=== PATIENT | male | born 1930 | race Caucasian/White ===

== ENCOUNTER 2016-11-08 18:44 | Observation (INO) | payer MEDICARE, OTHER ==
--- NOTE | 2016-11-08 19:17 | ED ---
General Adult HPI - General Chief complaint: Chest Pain Stated complaint: CHEST PAIN Time Seen by Provider: 11/08/16 18:49 Source: patient, RN notes reviewed, old records reviewed Mode of arrival: wheelchair Limitations: no limitations - History of Present Illness Initial comments: 86-year-old male presents with anterior chest pain. He's had 2 episodes pain today. These were short intermittent episodes lasting just seconds. Patient describes the pain as sharp. Patient did report some symptoms in his left neck. There is no associated arm pain. No nausea. No diaphoresis. Patient's had no abdominal pain, no vomiting or diarrhea. No fever or chills. No cough. Patient does take Coumadin for atrial fibrillation, he was told yesterday that his INR was elevated and he should stop taking his Coumadin for several days. Patient does report dark tarry stools over the past week, this is resolving also. Patient has no chest pain at this time. - Related Data Home Medications Medication Instructions Recorded Confirmed Enalapril [Vasotec] 20 mg PO DAILY 07/17/13 11/08/16 Nitroglycerin Sl Tabs [Nitrostat] 0.4 mg SUBLINGUAL Q5M PRN 07/17/13 11/08/16 Simvastatin [Zocor] 20 mg PO HS 07/17/13 11/08/16 Warfarin [Coumadin] 2.5 mg PO DIRECTED 07/17/13 11/08/16 Warfarin [Coumadin] 5 mg PO DIRECTED 07/17/13 11/08/16 Allergies Allergy/AdvReac Type Severity Reaction Status Date / Time No Known Allergies Allergy Verified 11/08/16 19:19 Review of Systems ROS Statement: Those systems with pertinent positive or pertinent negative responses have been documented in the HPI. ROS Other: All systems not noted in ROS Statement are negative. Past Medical History Past Medical History: Atrial Fibrillation, Asthma, Coronary Artery Disease (CAD) , Cancer, Chest Pain / Angina, Diabetes Mellitus, Hyperlipidemia, Hypertension, Memory Impairment, Myocardial Infarction (MD), Osteoarthritis (OA), Skin Disorder Additional Past Medical History / Comment(s): hx bilateral inguinal hernia Last Myocardial Infarction Date:: 2003 History of Any Multi-Drug Resistant Organisms: None Reported Past Surgical History: Adenoidectomy, Coronary Bypass/CABG, Heart Catheterization With Stent, Orthopedic Surgery, Tonsillectomy Additional Past Surgical History / Comment(s): left arm surg. years ago Past Anesthesia/Blood Transfusion Reactions: No Reported Reaction Date of Last Stent Placement:: 2000 Past Psychological History: Anxiety Smoking Status: Former smoker Past Alcohol Use History: None Reported Past Drug Use History: None Reported - Past Family History Mother Family Medical History: Myocardial Infarction (MD) ( at age 82 from myocardial infarction. She worked as a nurse.) Sister(s) Family Medical History: Cancer ( from cancer, unknown type.) Brother(s) Family Medical History: No Reported History (He has one brother that is living with no significant medical problems.) Son(s) Family Medical History: No Reported History (2 sons with no major medical problems.) Father Family Medical History: Cancer (Kidney and bladder cancer and at age 79.) Additional Family Medical History / Comment(s): bladder,kidney General Exam Limitations: no limitations General appearance: alert, in no apparent distress Head exam: Present: atraumatic, normocephalic Eye exam: Present: normal appearance, PERRL ENT exam: Present: normal exam, mucous membranes moist Neck exam: Present: normal inspection Respiratory exam: Present: normal lung sounds bilaterally. Absent: respiratory distress Cardiovascular Exam: Present: regular rate, irregular rhythm, systolic murmur ( Pansystolic murmur) GI/Abdominal exam: Present: soft. Absent: distended, tenderness Extremities exam: Present: normal inspection, normal capillary refill. Absent: pedal edema Neurological exam: Present: alert, oriented X3, CN II-XII intact. Absent: motor sensory deficit Psychiatric exam: Present: normal affect, normal mood Skin exam: Present: warm, dry, intact. Absent: cyanosis, diaphoretic Course Vital Signs 11/08/16 11/08/16 18:46 19:44 Temperature 98.3 F Pulse Rate 82 71 Respiratory 18 18 Rate Blood Pressure 183/107 156/71 O2 Sat by Pulse 97 98 Oximetry EKG Findings - EKG Comments: EKG Findings:: EKG shows atrial fibrillation, ventricular rate 73, QRS 90, QTC 436, no signs of acute ischemia, EKG is compared to previous EKG from November 2013 Medical Decision Making - Medical Decision Making 86-year-old male with history of CAD, status post CABG and stenting presenting with anterior chest pain. This was sharp in nature, nonradiating. Lasting with a few seconds. Chest pain is atypical by history. EKG is nonischemic. Chest x-ray shows no acute process. Laboratory studies include a CBC, CMP, and cardiac enzymes is unremarkable, hemoglobin is stable, initial troponin is negative. Patient does have history of atrial fibrillation and is on Coumadin, INR therapeutic at 2.6. Patient is chest pain-free while in the emergency department. Patient will be placed in observation for serial cardiac enzymes and cardiology evaluation. Diagnosis: Chest pain - Lab Data Result diagrams: 11/08/16 19:00 11/08/16 19:00 Lab Results 11/08/16 11/08/16 11/08/16 Range/Units 19:00 19:00 19:00 WBC 11.8 H (3.8-10.6) k/uL RBC 3.92 L (4.30-5.90) m/uL Hgb 13.7 (13.0-17.5) gm/dL Hct 40.2 (39.0-53.0) % MCV 102.5 H (80.0-100.0) fL MCH 35.0 (25.0-35.0) pg MCHC 34.2 (31.0-37.0) g/dL RDW 14.5 (11.5-15.5) % Plt Count 210 (150-450) k/uL Neutrophils % (Manual) 29 % Lymphocytes % (Manual) 58 % Monocytes % (Manual) 9 % Eosinophils % (Manual) 4 % Neutrophils # (Manual) 3.42 (1.3-7.7) k/uL Lymphocytes # (Manual) 6.84 H (1.0-4.8) k/uL Monocytes # (Manual) 1.06 H (0-1.0) k/uL Eosinophils # (Manual) 0.47 (0-0.7) k/uL Nucleated RBCs 0 (0-0) /100 WBC Manual Slide Review Performed Reactive Lymphocytes Present Macrocytosis Slight PT (9.0-12.0) sec INR (<1.2) APTT (22.0-30.0) sec Sodium 139 (137-145) mmol/L Potassium 5.0 (3.5-5.1) mmol/L Chloride 104 (98-107) mmol/L Carbon Dioxide 25 (22-30) mmol/L Anion Gap 10 mmol/L BUN 18 (9-20) mg/dL Creatinine 1.02 (0.66-1.25) mg/dL Est GFR (MDRD) Af Amer >60 (>60 ml/min/1.73 sqM) Est GFR (MDRD) Non-Af >60 (>60 ml/min/1.73 sqM) Glucose 129 H (74-99) mg/dL Calcium 9.0 (8.4-10.2) mg/dL Magnesium 2.0 (1.6-2.3) mg/dL Total Bilirubin 0.5 (0.2-1.3) mg/dL AST 27 (17-59) U/L ALT 29 (21-72) U/L Alkaline Phosphatase 59 (38-126) U/L Total Creatine Kinase 89 (55-170) U/L CK-MB (CK-2) 1.0 (0.0-2.4) ng/mL CK-MB (CK-2) Rel Index 1.1 Troponin I <0.012 (0.000-0.034) ng/mL NT-Pro-B Natriuret Pep pg/mL Total Protein 7.0 (6.3-8.2) g/dL Albumin 4.1 (3.5-5.0) g/dL Lipase 165 (23-300) U/L 11/08/16 11/08/16 Range/Units 19:00 19:00 WBC (3.8-10.6) k/uL RBC (4.30-5.90) m/uL Hgb (13.0-17.5) gm/dL Hct (39.0-53.0) % MCV (80.0-100.0) fL MCH (25.0-35.0) pg MCHC (31.0-37.0) g/dL RDW (11.5-15.5) % Plt Count (150-450) k/uL Neutrophils % (Manual) % Lymphocytes % (Manual) % Monocytes % (Manual) % Eosinophils % (Manual) % Neutrophils # (Manual) (1.3-7.7) k/uL Lymphocytes # (Manual) (1.0-4.8) k/uL Monocytes # (Manual) (0-1.0) k/uL Eosinophils # (Manual) (0-0.7) k/uL Nucleated RBCs (0-0) /100 WBC Manual Slide Review Reactive Lymphocytes Macrocytosis PT 24.6 H (9.0-12.0) sec INR 2.6 H (<1.2) APTT 34.7 H (22.0-30.0) sec Sodium (137-145) mmol/L Potassium (3.5-5.1) mmol/L Chloride (98-107) mmol/L Carbon Dioxide (22-30) mmol/L Anion Gap mmol/L BUN (9-20) mg/dL Creatinine (0.66-1.25) mg/dL Est GFR (MDRD) Af Amer (>60 ml/min/1.73 sqM) Est GFR (MDRD) Non-Af (>60 ml/min/1.73 sqM) Glucose (74-99) mg/dL Calcium (8.4-10.2) mg/dL Magnesium (1.6-2.3) mg/dL Total Bilirubin (0.2-1.3) mg/dL AST (17-59) U/L ALT (21-72) U/L Alkaline Phosphatase (38-126) U/L Total Creatine Kinase (55-170) U/L CK-MB (CK-2) (0.0-2.4) ng/mL CK-MB (CK-2) Rel Index Troponin I (0.000-0.034) ng/mL NT-Pro-B Natriuret Pep 1540 pg/mL Total Protein (6.3-8.2) g/dL Albumin (3.5-5.0) g/dL Lipase (23-300) U/L Disposition Clinical Impression: Chest pain Disposition: ADMITTED IP TO THIS [facility] Condition: Stable Referrals: Stiven Middleton DO [Primary Care Provider] - 1-2 days Decision to Admit Reason: Admit from EC Decision Date: 11/08/16 Decision Time: 20:33
[2016-11-08 19:23] LABS: Aty Lym Flag Slight; CH 35.1; CHCM 34.4; HCT 40.2 % (39.0-53.0); HDW 2.29; HGB 13.7 gm/dL (13.0-17.5); MCHC 34.2 g/dL (31.0-37.0); MCV 102.5 fL (80.0-100.0); Macrocytosis Slight; Mean Platelet Volume 7.7; RBC 3.92 m/uL (4.30-5.90); RDW 14.5 % (11.5-15.5); WBC 11.8 k/uL (3.8-10.6); WBC (Perox) 11.33
[2016-11-08 19:26] LABS: INR 2.6 (<1.2); Partial Thromboplastin Time 34.7 sec (22.0-30.0); Prothrombin Time 24.6 sec (9.0-12.0)
--- NOTE | 2016-11-08 19:32 | XR ---
EXAMINATION TYPE: XR chest 2V DATE OF EXAM: 11/08/2016 COMPARISON: 11/10/2013 HISTORY: Shortness of breath TECHNIQUE: Frontal and lateral views of the chest are obtained. FINDINGS: Scattered senescent parenchymal changes noted. Hyperinflation compatible with COPD. No evidence for infiltrate. No evidence for atelectasis. Heart size is stable. Mediastinal structures are stable and grossly unremarkable. No evidence for hilar prominence. Degenerative changes dorsal spine. IMPRESSION: 1. No evidence for acute pulmonary disease.
[2016-11-08 19:38] LABS: Add Differential Manual Differential
[2016-11-08 19:40] LABS: Nucleated Red Blood Cells 0 /100 WBC (0-0); Total Cells Counted 100
[2016-11-08 19:41] LABS: Manual Review Performed; Reactive Lymphocytes Present
[2016-11-08 19:44] LABS: ALT 29 U/L (21-72); AST 27 U/L (17-59); Alkaline Phosphatase 59 U/L (38-126); Anion Gap 10 mmol/L; Blood Urea Nitrogen 18 mg/dL (9-20); Carbon Dioxide 25 mmol/L (22-30); Chloride 104 mmol/L (98-107); Glucose 129 mg/dL (74-99); Non-African American GFR(MDRD) >60 (>60 ml/min/1.73 sqM); Sodium 139 mmol/L (137-145); Total Bilirubin 0.5 mg/dL (0.2-1.3)
[2016-11-08 20:04] LABS: Creatine Kinase 89 U/L (55-170)
[2016-11-08 20:17] LABS: Troponin I <0.012 ng/mL (0.000-0.034)
[2016-11-08] MEDS ORDERED: MORPHINE SULFATE 4 MG/ML SYRINGE IV PRN (20:33)
[2016-11-08] MEDS ORDERED: ACETAMINOPHEN TAB 325 MG TAB PO PRN (20:33)
[2016-11-08] MEDS ORDERED: NALOXONE 0.4 MG/ML 1 ML VIAL IV PRN (20:33)
[2016-11-08] MEDS ORDERED: ONDANSETRON 4 MG/2 ML VIAL IVP PRN (20:33)
[2016-11-08] MEDS ORDERED: NITROGLYCERIN SL TABS 0.4 MG TAB SUBLINGUAL PRN (20:37)
[2016-11-08] MEDS ORDERED: SODIUM CHLORIDE 0.9% 1,000 ML IV SCH (20:45)
[2016-11-08] MEDS ORDERED: ATORVASTATIN 10 MG TAB PO SCH (21:00)
[2016-11-08 21:41] VITALS: BMI 30.9
[2016-11-08] MEDS ORDERED: LISINOPRIL 20 MG TAB PO SCH (22:00)
[2016-11-09 01:03] LABS: Creatine Kinase 77 U/L (55-170)
[2016-11-09 01:16] LABS: Creatine Kinase MB 0.9 ng/mL (0.0-2.4); Troponin I <0.012 ng/mL (0.000-0.034)
[2016-11-09 03:39] VITALS: RESP 18
[2016-11-09 06:51] LABS: Glucose,Whole Blood 108 mg/dL (75-99)
[2016-11-09 06:58] LABS: Aty Lym Flag Slight; CH 35.3; HCT 39.3 % (39.0-53.0); HDW 2.26; INR 2.1 (<1.2); MCH 34.3 pg (25.0-35.0); MCHC 32.9 g/dL (31.0-37.0); MCV 104.2 fL (80.0-100.0); Macrocytosis Slight; Mean Platelet Volume 7.5; Prothrombin Time 20.7 sec (9.0-12.0); RBC 3.77 m/uL (4.30-5.90); RDW 14.5 % (11.5-15.5); WBC 9.9 k/uL (3.8-10.6); WBC (Perox) 10.45
[2016-11-09 07:09] LABS: ALT 33 U/L (21-72); AST 21 U/L (17-59); Alkaline Phosphatase 49 U/L (38-126); Anion Gap 7 mmol/L; Blood Urea Nitrogen 17 mg/dL (9-20); Calcium 8.7 mg/dL (8.4-10.2); Carbon Dioxide 25 mmol/L (22-30); Chloride 107 mmol/L (98-107); Glucose 104 mg/dL (74-99); Non-African American GFR(MDRD) >60 (>60 ml/min/1.73 sqM); Potassium 4.8 mmol/L (3.5-5.1); Sodium 139 mmol/L (137-145); Total Bilirubin 0.6 mg/dL (0.2-1.3); Total Protein 6.3 g/dL (6.3-8.2)
[2016-11-09 07:29] LABS: Creatine Kinase 62 U/L (55-170)
[2016-11-09 07:41] LABS: Creatine Kinase MB 0.9 ng/mL (0.0-2.4); Troponin I <0.012 ng/mL (0.000-0.034)
[2016-11-09 07:58] LABS: Add Differential Manual Differential
[2016-11-09 08:06] LABS: Nucleated Red Blood Cells 0 /100 WBC (0-0); Total Cells Counted 100
[2016-11-09 08:07] LABS: Manual Review Performed
[2016-11-09] MEDS ORDERED: LISINOPRIL 20 MG TAB PO SCH (09:00)
[2016-11-09 11:26] VITALS: BP 144/70; PULSE 60; TEMP 97.6
[2016-11-09 12:11] LABS: Glucose,Whole Blood 152 mg/dL (75-99)
[2016-11-09] MEDS ORDERED: amLODIPine 5 MG TAB PO STA (13:18)
--- NOTE | 2016-11-09 13:19 | ECHOF ---
Referral Reason:chest pain MEASUREMENTS -------- HEIGHT: 185.4 cm WEIGHT: 106.6 kg BP: 184/96 RVIDd: 3.7 cm (< 3.3) IVSd: 1.4 cm (0.6 - 1.1) LVIDd: 4.4 cm (3.9 - 5.3) LVPWd: 1.5 cm (0.6 - 1.1) IVSs: 2.1 cm LVIDs: 3.6 cm LVPWs: 2.1 cm LA Diam: 4.5 cm (2.7 - 3.8) LAESV Index (A-L): 44.23 ml/m Ao Diam: 4.2 cm (2.0 - 3.7) AV Cusp: 2.1 cm (1.5 - 2.6) MV EXCURSION: 16.594 mm (> 18.000) MV EF SLOPE: 50 mm/s (70 - 150) EPSS: 1.0 cm AV maxP.61 mmHg AV meanP.67 mmHg FINDINGS -------- Atrial fibrillation. This was a technically good study. The left ventricular size is normal. There is moderate concentric left ventricular hypertrophy. Overall left ventricular systolic function is normal with, an EF between 55 - 60 %. Septal wall motion is delayed and consistent with prior cardiac surgery. The right ventricle is mildly enlarged. LA is severely dilated >40 ml/m2 The right atrium is normal in size. There is mild aortic valve sclerosis. There is mild aortic regurgitation. There is mild aortic stenosis present. Peak/mean gradient across the Aortic Valve is 21.61mmHg / 10.67mmHg. The mitral valve leaflets are mildly thickened. Mild mitral annular calcification present. The tricuspid valve appears structurally normal. Trace/mild (physiologic) pulmonic regurgitation. The aortic root is dilated measuring 4.2cm. Normal inferior vena cava with normal inspiratory collapse consistent with estimated right atrial pressure of 5 mmHg. There is no pericardial effusion. CONCLUSIONS -------- 1. Atrial fibrillation. 2. There is mild aortic valve sclerosis. 3. There is mild aortic regurgitation. 4. There is mild aortic stenosis present. 5. Peak/mean gradient across the Aortic Valve is 21.61mmHg / 10.67mmHg. 6. The mitral valve leaflets are mildly thickened. 7. Mild mitral annular calcification present. 8. The tricuspid valve appears structurally normal. 9. Trace/mild (physiologic) pulmonic regurgitation. 10. The aortic root is dilated measuring 4.2cm. 11. Normal inferior vena cava with normal inspiratory collapse consistent with estimated right atrial pressure of 5 mmHg. 12. This was a technically good study. 13. There is no pericardial effusion. 14. The left ventricular size is normal. 15. There is moderate concentric left ventricular hypertrophy. 16. Overall left ventricular systolic function is normal with, an EF between 55 - 60 %. 17. Septal wall motion is delayed and consistent with prior cardiac surgery. 18. The right ventricle is mildly enlarged. 19. LA is severely dilated >40 ml/m2 20. The right atrium is normal in size. MANAGER OF FINANCIAL PLANNING: Kasey Basutro RDCS
--- NOTE | 2016-11-09 15:11 | P.HPIM ---
History of Present Illness H&P Date: 11/09/16 Chief Complaint: Chest pain HISTORY AND PHYSCIAL AND DISCHARGE SUMMARY: This is an 86-year-old gentleman. He is a patient of Dr. Zane arreaga with past medical history of atrial fibrillation on Coumadin, coronary artery disease status post CABG 3 vessel and PCI, skin cancer, diabetes mellitus type 2 , hyperlipidemia, hypertension, memory impairment, osteoarthritis, psoriasis. He states he was sitting in his lazy boy chair and developed chest pain shortness of breath. He states I thought I was having a heart attack. He states it happened 2-3 times and it goes away on its own. He denies any lower extremity edema. He does state he has an appointment with Dr. Jose C Michel on Sunday. He states that he last had his Coumadin level checked and he has on hold as his level was high. Currently at 2.1. His is currently residing at [facility] secondary to an ankle fracture. He did not have any nausea, vomiting , diarrhea. Patient was seen by his cover maker and cleared for discharge home with plan for follow-up in the office. Patient will be discharged home today in stable condition. Review of Systems All systems: negative Constitutional: Denies anorexia, Denies chills, Denies fatigue, Denies fever, Denies lethargy, Denies malaise, Denies poor appetite, Denies sweats, Denies weakness, Denies weight loss Eyes: denies blurred vision, denies pain Ears, nose, mouth and throat: Denies dental pain, Denies headache, Denies mouth pain, Denies sore throat Cardiovascular: Denies chest pain, Denies decreased exercise tolerance, Denies dyspnea on exertion, Denies edema, Denies leg edema, Denies lightheadedness, Denies shortness of breath, Denies syncope Respiratory: Denies cough, Denies cough with sputum, Denies dyspnea, Denies excessive sputum, Denies hemoptysis, Denies home oxygen Gastrointestinal: Denies abdominal pain, Denies diarrhea, Denies nausea, Denies vomiting Musculoskeletal: Denies myalgias Integumentary: Denies pruritus, Denies rash Neurological: Denies numbness, Denies weakness Psychiatric: Denies anxiety, Denies depression Endocrine: Denies fatigue, Denies weight change Past Medical History Past Medical History: Atrial Fibrillation, Asthma, Coronary Artery Disease (CAD) , Cancer, Chest Pain / Angina, Diabetes Mellitus, Hyperlipidemia, Hypertension, Memory Impairment, Myocardial Infarction (IA), Osteoarthritis (OA), Skin Disorder Additional Past Medical History / Comment(s): hx bilateral inguinal hernia, rt foot and bilateral wrists broken - decades ago Last Myocardial Infarction Date:: 2003 History of Any Multi-Drug Resistant Organisms: None Reported Past Surgical History: Adenoidectomy, Coronary Bypass/CABG, Heart Catheterization With Stent, Orthopedic Surgery, Tonsillectomy Additional Past Surgical History / Comment(s): left arm surg in 1946. Lt knee surg.- decades ago Past Anesthesia/Blood Transfusion Reactions: No Reported Reaction Date of Last Stent Placement:: 2000 Past Psychological History: Anxiety Smoking Status: Former smoker Past Alcohol Use History: None Reported Additional Past Alcohol Use History / Comment(s): Patient was a smoker of half a pack to 1 pack of cigarettes per 64 years. He denies any alcohol abuse. 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 Past Drug Use History: None Reported - Past Family History Mother Family Medical History: Myocardial Infarction (IA) Additional Family Medical History / Comment(s): Mother at age 82 from myocardial infarction. She worked as a nurse. Sister(s) Family Medical History: Cancer Additional Family Medical History / Comment(s): Sister from unknown type of cancer. Brother(s) Family Medical History: No Reported History Additional Family Medical History / Comment(s): Patient has 1 brother that is living with no significant medical problems. Son(s) Family Medical History: No Reported History Additional Family Medical History / Comment(s): Patient has 2 sons with no major medical problems. Father Family Medical History: Cancer Additional Family Medical History / Comment(s): Father at age 79 from kidney and bladder cancer. Medications and Allergies Home Medications Medication Instructions Recorded Confirmed Type Enalapril [Vasotec] 20 mg PO DAILY 07/17/13 11/08/16 History Nitroglycerin Sl Tabs [Nitrostat] 0.4 mg SUBLINGUAL Q5M PRN 07/17/13 11/08/16 History Simvastatin [Zocor] 20 mg PO HS 07/17/13 11/08/16 History Warfarin [Coumadin] 2.5 mg PO DIRECTED 07/17/13 11/08/16 History Warfarin [Coumadin] 5 mg PO DIRECTED 07/17/13 11/08/16 History amLODIPine [Norvasc] 5 mg PO DAILY #30 tab 11/09/16 Rx Allergies Allergy/AdvReac Type Severity Reaction Status Date / Time No Known Allergies Allergy Verified 11/08/16 19:19 Physical Exam Vitals: Vital Signs Temp Pulse Pulse Resp BP BP Pulse Ox 11/09/16 11:52 96 11/09/16 11:24 97.6 F 60 18 144/70 96 11/09/16 08:00 97.7 F 66 18 184/96 95 11/09/16 04:00 44 L 18 11/09/16 03:39 97.7 F 59 L 18 97 11/09/16 03:38 142/60 11/09/16 00:16 97.7 F 52 L 16 147/67 97 11/08/16 22:40 81 16 11/08/16 21:14 98.4 F 54 L 16 97 11/08/16 21:00 172/58 11/08/16 20:45 98.2 F 54 L 18 146/71 96 11/08/16 19:44 71 18 156/71 98 11/08/16 18:46 98.3 F 82 18 183/107 97 Intake and Output 11/08/16 11/09/16 11/09/16 22:59 06:59 14:59 Other: # Voids 1 Weight 106.594 kg Gen: This is a 86-year-old gentleman. He is sitting in a chair and appears to be in no acute distress. HEENT: Head is atraumatic, normocephalic. Pupils equal, round. Sclerae is anicteric. NECK: Supple. No JVD. No lymphadenopathy. No thyromegaly. No carotid bruit LUNGS: Clear to auscultation. No wheezes or rhonchi. No intercostal retractions. HEART: Irregularly irregular and rhythm. Systolic murmur. ABDOMEN: Soft. Bowel sounds are present. No masses. No tenderness. EXTREMITIES: No pedal edema. No calf tenderness. NEUROLOGICAL: Patient is awake, alert and oriented x3. Cranial nerves 2 through 12 are grossly intact. Results CBC & Chem 7: 11/09/16 06:33 11/09/16 06:33 Labs: Abnormal Lab Results - Last 24 Hours (Table) 11/08/16 11/08/16 11/08/16 Range/Units 19:00 19:00 19:00 WBC 11.8 H (3.8-10.6) k/uL RBC 3.92 L (4.30-5.90) m/uL MCV 102.5 H (80.0-100.0) fL Lymphocytes # (Manual) 6.84 H (1.0-4.8) k/uL Monocytes # (Manual) 1.06 H (0-1.0) k/uL PT 24.6 H (9.0-12.0) sec INR 2.6 H (<1.2) APTT 34.7 H (22.0-30.0) sec Glucose 129 H (74-99) mg/dL POC Glucose (mg/dL) (75-99) mg/dL 11/09/16 11/09/16 11/09/16 Range/Units 06:33 06:33 06:33 WBC (3.8-10.6) k/uL RBC 3.77 L (4.30-5.90) m/uL MCV 104.2 H (80.0-100.0) fL Lymphocytes # (Manual) (1.0-4.8) k/uL Monocytes # (Manual) 1.19 H (0-1.0) k/uL PT 20.7 H (9.0-12.0) sec INR 2.1 H (<1.2) APTT (22.0-30.0) sec Glucose 104 H (74-99) mg/dL POC Glucose (mg/dL) (75-99) mg/dL 11/09/16 11/09/16 Range/Units 06:49 12:08 WBC (3.8-10.6) k/uL RBC (4.30-5.90) m/uL MCV (80.0-100.0) fL Lymphocytes # (Manual) (1.0-4.8) k/uL Monocytes # (Manual) (0-1.0) k/uL PT (9.0-12.0) sec INR (<1.2) APTT (22.0-30.0) sec Glucose (74-99) mg/dL POC Glucose (mg/dL) 108 H 152 H (75-99) mg/dL Thrombosis Risk Factor Assmnt - Choose All That Apply Each Factor Represents 1 point: Obesity (BMI >25) Each Risk Factor Represents 3 Points: Age 75 years or older Thrombosis Risk Factor Assessment Total Risk Factor Score: 4 Thrombosis Risk Factor Assessment Level: Moderate Risk Assessment and Plan Plan: 1. Chest pain, most likely musculoskeletal. Consult with cardiology is appreciated repeat troponins have been negative. Patient will be prepared for discharge home. 2. History of hypertension. 3. History of coronary artery disease with previous CABG and PCI. 4. History of atrial fibrillation, rate controlled. Patient will resume Coumadin at normal dosing. Patient has been admitted into the observation unit for less than 24 hours. Impression and plan of care have been directed as dictated by the signing physician. Brenda Mi nurse practitioner acting as scribe for signing physician. Cc: Dr. Stiven Middleton
--- NOTE | 2016-11-09 18:59 | CONS ---
CONSULTATION This is an 86-year-old elderly gentleman with a history of sick sinus syndrome, chronic atrial fibrillation, hypertension, hyperlipidemia, CAD, with previous bypass surgery, who also has mild to moderate aortic stenosis. I see him in the office on a regular basis. He takes care of his as well. He came into the hospital mainly with complaints of intermittent sharp pains in the chest that lasted a few seconds. He felt some anxiety and also had some left neck pain and came into the hospital. His PT/INR was normal. He was in atrial fibrillation. His EKG revealed atrial fibrillation, controlled rate and non-specific ST-T changes. He has not had any recurrence of pain, and his symptoms seemed atypical. His troponins are normal. His blood pressure is good. He is resting comfortably without symptoms. PAST MEDICAL HISTORY: 1. CAD with previous bypass surgery. 2. Sick sinus syndrome, not on any rate-lowering agents. 3. Chronic atrial fibrillation. 4. Hyperlipidemia. 5. History of mild to moderate aortic stenosis. MEDICATIONS: Medications at home include: 1. Vasotec 20 mg daily. 2. Simvastatin 20 mg daily. 3. Coumadin with a good INR of 2.6. He does not take any rate-lowering agents. ALLERGIES: NONE. REVIEW OF SYSTEMS: Unremarkable other than above-mentioned facts. EXAMINATION: Blood pressure is 130/70. Pulse rate is 70, irregular. HEENT unremarkable. Fundus was not examined by me. NECK: Supple. No JVD. I do not hear a carotid bruit. Heart exam reveals S1, S2 with ejection systolic murmur, and the second heart sound is preserved. Lungs are clear. ABDOMEN: Soft, nontender. Lower extremities reveal normal pulses. No edema. Central nervous system is normal. EKG: EKG revealed atrial fibrillation, controlled rate, non-specific ST-T changes. IMPRESSION: 1. Coronary artery disease with a history of prior PCI and eventual bypass surgery that was performed in 2003 with a HORNE to LAD, vein graft to the diagonal branch of LAD and obtuse marginal branch of circumflex. His cardiac catheterization from July 2013 revealed that he had a total occlusion of the LAD and the left main was highly diseased. The RCA that was stented previously was widely patent. This was never grafted. Vein graft to the diagonal and obtuse marginal as well as the HORNE to LAD were widely patent. 2. Hypertension. 3. Hypercholesterolemia. 4. History of sick sinus syndrome, not on rate-lowering agents. 5. Mild to moderate aortic stenosis. RECOMMENDATIONS: I am recommending that his pain is atypical. He has been reassured. Will increase activity, and if he has no further symptoms, he will be discharged on same home medications. If he continues to have symptoms, I will see him in the office as an outpatient sooner. Discussed my thoughts in detail with the patient. Thank you very much for the consult. ROSMERY / MARBELLA: [id number] /
== END 2016-11-09 14:30 | disposition home or self-care (01) ==
LOC: EC 18:44 → 3OBS 20:33
PROVIDERS: ADMIT Family Medicine; ATTEND Family Medicine
DX: R07.89 Other chest pain (principal); I48.2 Chronic atrial fibrillation; I25.10 Atherosclerotic heart disease of native coronary artery without angina pectoris; J45.909 Unspecified asthma, uncomplicated; I10 Essential (primary) hypertension; E78.5 Hyperlipidemia, unspecified; E11.9 Type 2 diabetes mellitus without complications; I25.2 Old myocardial infarction; M19.90 Unspecified osteoarthritis, unspecified site; F41.9 Anxiety disorder, unspecified; M54.2 Cervicalgia; I49.5 Sick sinus syndrome; L40.9 Psoriasis, unspecified; Z95.1 Presence of aortocoronary bypass graft; Z79.899 Other long term (current) drug therapy; Z79.01 Long term (current) use of anticoagulants; Z82.49 Family history of ischemic heart disease and other diseases of the circulatory system; Z85.828 Personal history of other malignant neoplasm of skin; Z95.5 Presence of coronary angioplasty implant and graft; Z87.891 Personal history of nicotine dependence
CPT/HCPCS: 99285; 36415; 94760; 93005; 93306; 83880; 80053 ×2; 82550 ×2; 82553 ×2; 83690; 83735; 84484 ×2; 85025 ×2; 85610 ×2; 85730; 71020; G0378 ×2

== ENCOUNTER 2017-03-01 08:25 | Emergency (ER) | payer MEDICARE, OTHER ==
[2017-03-01] MEDS ORDERED: IPRATROPIUM-ALBUTEROL 3 ML NEB INHALATION STA (08:52)
--- NOTE | 2017-03-01 08:56 | ED ---
General Adult HPI - General Chief complaint: Shortness of Breath Stated complaint: SOB,COUGH Time Seen by Provider: 03/01/17 08:46 Source: patient, RN notes reviewed Mode of arrival: wheelchair Limitations: no limitations - History of Present Illness Initial comments: Patient is a pleasant 86-year-old male presenting to the emergency Department with complaints of chest congestion. Symptoms have been present for a few weeks. Patient does have some mild sinus congestion. Patient has cough with occasional yellow sputum. Patient does feel somewhat short of breath. No chest pain. No leg pain or leg swelling. Patient questions whether or not he is having fevers. Distant history of smoking for just a few years. - Related Data Home Medications Medication Instructions Recorded Confirmed Enalapril [Vasotec] 20 mg PO DAILY 07/17/13 03/01/17 Nitroglycerin Sl Tabs [Nitrostat] 0.4 mg SUBLINGUAL Q5M PRN 07/17/13 03/01/17 Simvastatin [Zocor] 20 mg PO HS 07/17/13 03/01/17 Warfarin [Coumadin] 2.5 mg PO DIRECTED 07/17/13 03/01/17 Warfarin [Coumadin] 5 mg PO DIRECTED 07/17/13 03/01/17 Acetaminophen [Tylenol Arthritis] 650 mg PO Q6H PRN 03/01/17 03/01/17 Magnesium Oxide [Mag-Ox] 400 mg PO DAILY 03/01/17 03/01/17 [place]-3 Fatty Acids/Fish Oil [Fish 1 cap PO DAILY 03/01/17 03/01/17 Oil 1,000 mg Softgel] Previous Rx's Medication Instructions Recorded Albuterol Inhaler [Ventolin Hfa 2 puff INHALATION Q4HR PRN #1 03/01/17 Inhaler] inhaler methylPREDNISolone Dose Pack 24 mg PO DAILY #1 tab 03/01/17 [Medrol Dose Pack] Allergies Allergy/AdvReac Type Severity Reaction Status Date / Time No Known Allergies Allergy Verified 03/01/17 09:01 Review of Systems ROS Statement: Those systems with pertinent positive or pertinent negative responses have been documented in the HPI. ROS Other: All systems not noted in ROS Statement are negative. Constitutional: Reports: other (Patient is unclear if he is having fevers) Eyes: Denies: eye pain ENT: Denies: ear pain Respiratory: Reports: cough, dyspnea Cardiovascular: Denies: chest pain Endocrine: Denies: heat or cold intolerance Gastrointestinal: Denies: vomiting Genitourinary: Denies: dysuria Musculoskeletal: Denies: back pain Skin: Denies: rash Neurological: Denies: weakness Past Medical History Past Medical History: Atrial Fibrillation, Asthma, Coronary Artery Disease (CAD) , Cancer, Chest Pain / Angina, Diabetes Mellitus, Hyperlipidemia, Hypertension, Memory Impairment, Myocardial Infarction ([place]), Osteoarthritis (OA), Skin Disorder Additional Past Medical History / Comment(s): hx bilateral inguinal hernia, rt foot and bilateral wrists broken - decades ago Last Myocardial Infarction Date:: 2003 History of Any Multi-Drug Resistant Organisms: None Reported Past Surgical History: Adenoidectomy, Coronary Bypass/CABG, Heart Catheterization With Stent, Orthopedic Surgery, Tonsillectomy Additional Past Surgical History / Comment(s): left arm surg in 1946. Lt knee surg.- decades ago Past Anesthesia/Blood Transfusion Reactions: No Reported Reaction Date of Last Stent Placement:: 2000 Past Psychological History: Anxiety Smoking Status: Former smoker Past Alcohol Use History: None Reported Past Drug Use History: None Reported - Past Family History Mother Family Medical History: Myocardial Infarction ([place]) Additional Family Medical History / Comment(s): Mother at age 82 from myocardial infarction. She worked as a nurse. Sister(s) Family Medical History: Cancer Additional Family Medical History / Comment(s): Sister from unknown type of cancer. Brother(s) Family Medical History: No Reported History Additional Family Medical History / Comment(s): Patient has 1 brother that is living with no significant medical problems. Son(s) Family Medical History: No Reported History Additional Family Medical History / Comment(s): Patient has 2 sons with no major medical problems. Father Family Medical History: Cancer Additional Family Medical History / Comment(s): Father at age 79 from kidney and bladder cancer. General Exam Limitations: no limitations General appearance: alert, in no apparent distress Head exam: Present: atraumatic, normocephalic Eye exam: Present: normal appearance, PERRL ENT exam: Present: normal oropharynx Neck exam: Present: normal inspection Respiratory exam: Present: wheezes Cardiovascular Exam: Present: regular rate, normal rhythm GI/Abdominal exam: Present: soft. Absent: tenderness Extremities exam: Present: normal inspection. Absent: pedal edema, calf tenderness Neurological exam: Present: alert Psychiatric exam: Present: normal affect, normal mood Skin exam: Present: normal color Course Vital Signs 03/01/17 03/01/17 03/01/17 08:25 09:06 09:15 Temperature 97.5 F L Pulse Rate 81 83 74 Respiratory 17 Rate Blood Pressure 192/85 O2 Sat by Pulse 98 Oximetry EKG Findings - EKG Comments: EKG Findings:: A. fib with rate of 83. QRS 96. QT 376. QTc 441. Normal axis. Normal QRS. No acute ST change. Medical Decision Making - Medical Decision Making Patient reexamined and resting comfortably in bed. Patient does feel somewhat better following breathing treatment. Lungs with continued mild wheezing. Patient updated on results and need for follow-up. Patient advised to hold Coumadin 2 days. - Lab Data Result diagrams: 03/01/17 08:55 03/01/17 08:55 Lab Results 03/01/17 03/01/17 03/01/17 Range/Units 08:55 08:55 08:55 WBC 10.3 (3.8-10.6) k/uL RBC 4.11 L (4.30-5.90) m/uL Hgb 13.6 (13.0-17.5) gm/dL Hct 41.7 (39.0-53.0) % MCV 101.7 H (80.0-100.0) fL MCH 33.0 (25.0-35.0) pg MCHC 32.5 (31.0-37.0) g/dL RDW 14.6 (11.5-15.5) % Plt Count 239 (150-450) k/uL Neutrophils % Not Reportable Neutrophils % (Manual) 39 % Band Neutrophils % 1 % Lymphocytes % Not Reportable Lymphocytes % (Manual) 53 % Monocytes % Not Reportable Monocytes % (Manual) 3 % Eosinophils % Not Reportable Eosinophils % (Manual) 4 % Basophils % Not Reportable Neutrophils # Not Reportable Neutrophils # (Manual) 4.10 (1.3-7.7) k/uL Lymphocytes # Not Reportable Lymphocytes # (Manual) 5.46 H (1.0-4.8) k/uL Monocytes # Not Reportable Monocytes # (Manual) 0.31 (0-1.0) k/uL Eosinophils # Not Reportable Eosinophils # (Manual) 0.41 (0-0.7) k/uL Basophils # Not Reportable Nucleated RBCs 0 (0-0) /100 WBC Manual Slide Review Performed Poikilocytosis (manual Present Macrocytosis Slight PT (9.0-12.0) sec INR (<1.2) APTT (22.0-30.0) sec Sodium 140 (137-145) mmol/L Potassium 4.5 (3.5-5.1) mmol/L Chloride 106 (98-107) mmol/L Carbon Dioxide 26 (22-30) mmol/L Anion Gap 8 mmol/L BUN 15 (9-20) mg/dL Creatinine 0.86 (0.66-1.25) mg/dL Est GFR (MDRD) Af Amer >60 (>60 ml/min/1.73 sqM) Est GFR (MDRD) Non-Af >60 (>60 ml/min/1.73 sqM) Glucose 166 H (74-99) mg/dL Calcium 9.1 (8.4-10.2) mg/dL Total Bilirubin 0.7 (0.2-1.3) mg/dL AST 28 (17-59) U/L ALT 34 (21-72) U/L Alkaline Phosphatase 51 (38-126) U/L NT-Pro-B Natriuret Pep pg/mL Total Protein 7.0 (6.3-8.2) g/dL Albumin 3.8 (3.5-5.0) g/dL Influenza Type A RNA Not Detected (Not Detectd) Influenza Type B (PCR) Not Detected (Not Detectd) 03/01/17 03/01/17 Range/Units 08:55 08:55 WBC (3.8-10.6) k/uL RBC (4.30-5.90) m/uL Hgb (13.0-17.5) gm/dL Hct (39.0-53.0) % MCV (80.0-100.0) fL MCH (25.0-35.0) pg MCHC (31.0-37.0) g/dL RDW (11.5-15.5) % Plt Count (150-450) k/uL Neutrophils % Neutrophils % (Manual) % Band Neutrophils % % Lymphocytes % Lymphocytes % (Manual) % Monocytes % Monocytes % (Manual) % Eosinophils % Eosinophils % (Manual) % Basophils % Neutrophils # Neutrophils # (Manual) (1.3-7.7) k/uL Lymphocytes # Lymphocytes # (Manual) (1.0-4.8) k/uL Monocytes # Monocytes # (Manual) (0-1.0) k/uL Eosinophils # Eosinophils # (Manual) (0-0.7) k/uL Basophils # Nucleated RBCs (0-0) /100 WBC Manual Slide Review Poikilocytosis (manual Macrocytosis PT 39.3 H (9.0-12.0) sec INR 4.4 H (<1.2) APTT 36.6 H (22.0-30.0) sec Sodium (137-145) mmol/L Potassium (3.5-5.1) mmol/L Chloride (98-107) mmol/L Carbon Dioxide (22-30) mmol/L Anion Gap mmol/L BUN (9-20) mg/dL Creatinine (0.66-1.25) mg/dL Est GFR (MDRD) Af Amer (>60 ml/min/1.73 sqM) Est GFR (MDRD) Non-Af (>60 ml/min/1.73 sqM) Glucose (74-99) mg/dL Calcium (8.4-10.2) mg/dL Total Bilirubin (0.2-1.3) mg/dL AST (17-59) U/L ALT (21-72) U/L Alkaline Phosphatase (38-126) U/L NT-Pro-B Natriuret Pep 1210 pg/mL Total Protein (6.3-8.2) g/dL Albumin (3.5-5.0) g/dL Influenza Type A RNA (Not Detectd) Influenza Type B (PCR) (Not Detectd) - Radiology Data Radiology results: image reviewed (Chest x-ray shows no acute process) Disposition Clinical Impression: Acute bronchitis Disposition: HOME SELF-CARE Condition: Stable Instructions: Acute Bronchitis (ED) Additional Instructions: Please follow-up to primary care physician in the next couple of days for recheck. You will need to have your Coumadin level rechecked within the next week or so. Hold Coumadin for the next 2 days. Return for fevers, difficulty breathing, worsening or changing symptoms or other concerns. Prescriptions: Albuterol Inhaler [Ventolin Hfa Inhaler] 2 puff INHALATION Q4HR PRN #1 inhaler PRN Reason: Dyspnea methylPREDNISolone Dose Pack [Medrol Dose Pack] 24 mg PO DAILY #1 tab Referrals: Stiven Middleton DO [Primary Care Provider] - 1-2 days Time of Disposition: 10:25
[2017-03-01 09:13] LABS: CH 32.6; CHCM 32.2; HCT 41.7 % (39.0-53.0); HDW 2.27; HGB 13.6 gm/dL (13.0-17.5); MCHC 32.5 g/dL (31.0-37.0); MCV 101.7 fL (80.0-100.0); Macrocytosis Slight; RBC 4.11 m/uL (4.30-5.90); RDW 14.6 % (11.5-15.5); WBC 10.3 k/uL (3.8-10.6); WBC (Perox) 10.35
[2017-03-01 09:26] LABS: ALT 34 U/L (21-72); AST 28 U/L (17-59); Alkaline Phosphatase 51 U/L (38-126); Anion Gap 8 mmol/L; Blood Urea Nitrogen 15 mg/dL (9-20); Calcium 9.1 mg/dL (8.4-10.2); Carbon Dioxide 26 mmol/L (22-30); Chloride 106 mmol/L (98-107); Glucose 166 mg/dL (74-99); Non-African American GFR(MDRD) >60 (>60 ml/min/1.73 sqM); Potassium 4.5 mmol/L (3.5-5.1); Sodium 140 mmol/L (137-145); Total Bilirubin 0.7 mg/dL (0.2-1.3)
[2017-03-01 09:30] LABS: INR 4.4 (<1.2); Partial Thromboplastin Time 36.6 sec (22.0-30.0); Prothrombin Time 39.3 sec (9.0-12.0)
--- NOTE | 2017-03-01 09:38 | XR ---
EXAMINATION TYPE: XR chest 2V DATE OF EXAM: 03/01/2017 COMPARISON: 11/08/2016 INDICATION: Difficulty breathing, cough and congestion TECHNIQUE: Frontal and lateral views of the chest are obtained. FINDINGS: The heart size is normal. The pulmonary vasculature is normal. The lungs are clear. IMPRESSION: 1. No acute pulmonary process.
[2017-03-01 10:14] LABS: Add Differential Manual Differential
[2017-03-01 10:16] LABS: Band Neutrophils % 1 %; Manual Review Performed; Nucleated Red Blood Cells 0 /100 WBC (0-0); Total Cells Counted 100
[2017-03-01 10:32] VITALS: BP 160/69; PULSE 68; RESP 20; TEMP 97.9
== END 2017-03-01 10:32 | disposition home or self-care (01) ==
LOC: EC 08:25
DX: J20.9 Acute bronchitis, unspecified (principal); I25.10 Atherosclerotic heart disease of native coronary artery without angina pectoris; I10 Essential (primary) hypertension; I25.2 Old myocardial infarction; E78.5 Hyperlipidemia, unspecified; Z85.9 Personal history of malignant neoplasm, unspecified; Z82.49 Family history of ischemic heart disease and other diseases of the circulatory system; Z87.891 Personal history of nicotine dependence; Z95.1 Presence of aortocoronary bypass graft; Z95.5 Presence of coronary angioplasty implant and graft; Z79.01 Long term (current) use of anticoagulants; Z79.899 Other long term (current) drug therapy
CPT/HCPCS: 36415; 71020; 80053; 83880; 85025; 85610; 85730; 87502; 93005; 94640; 99285

== ENCOUNTER → 2017-03-07 | Outpatient (CLI) | payer MEDICARE, OTHER ==
[2017-03-07 14:02] LABS: INR 3.1 (<1.2); Prothrombin Time 27.5 sec (9.0-12.0)
== END | disposition home or self-care (01) ==
LOC: LABWHC1 12:22
PROVIDERS: ATTEND Family Medicine
DX: I50.40 Unspecified combined systolic (congestive) and diastolic (congestive) heart failure (principal)
CPT/HCPCS: 36415; 83880; 85610

== ENCOUNTER 2017-05-05 23:48 | Inpatient (IN) | payer MEDICARE, OTHER ==
[2017-05-05] MEDS ORDERED: ONDANSETRON 4 MG/2 ML VIAL IVP STA (23:56)
[2017-05-05] MEDS ORDERED: SODIUM CHLORIDE 0.9% 1,000 ML IV STA ×2 (23:56)
[2017-05-06 00:10] LABS: Basophils % (A) 0 %; Eosinophils # (A) 0.2 k/uL (0-0.7); Eosinophils % (A) 1 %; HCT 43.2 % (39.0-53.0); Lymphocytes # (A) 3.4 k/uL (1.0-4.8); Lymphocytes % (A) 22 %; MCH 33.2 pg (25.0-35.0); MCHC 32.5 g/dL (31.0-37.0); MCV 102.2 fL (80.0-100.0); Macrocytosis Slight; Mean Platelet Volume 7.3; Monocytes # (A) 0.5 k/uL (0-1.0); Monocytes % (A) 3 %; Neutrophils # (A) 10.9 k/uL (1.3-7.7); Neutrophils % (A) 71 %; Platelet Count 211 k/uL (150-450); RBC 4.22 m/uL (4.30-5.90); RDW 14.1 % (11.5-15.5); WBC 15.4 k/uL (3.8-10.6)
[2017-05-06 00:20] LABS: ALT 25 U/L (21-72); AST 25 U/L (17-59); Albumin 3.8 g/dL (3.5-5.0); Alkaline Phosphatase 48 U/L (38-126); Amylase 53 U/L (30-110); Anion Gap 8 mmol/L; Blood Urea Nitrogen 20 mg/dL (9-20); Calcium 8.8 mg/dL (8.4-10.2); Carbon Dioxide 26 mmol/L (22-30); Chloride 105 mmol/L (98-107); Glucose 130 mg/dL (74-99); Lipase 157 U/L (23-300); Sodium 139 mmol/L (137-145); Total Bilirubin 1.3 mg/dL (0.2-1.3); Total Protein 6.6 g/dL (6.3-8.2)
--- NOTE | 2017-05-06 00:31 | XR ---
EXAMINATION TYPE: XR abdomen acute w cxr DATE OF EXAM: 05/06/2017 COMPARISON: 03/01/2017 chest x-ray HISTORY: Nausea and vomiting TECHNIQUE: 4 views FINDINGS: There is some coarsening of interstitial pulmonary markings. This is more at the left lung base. Ther e is no heart failure. There are sternal wires. Thoracic aorta is atheromatous. There is no sign of i ntestinal obstruction or pneumoperitoneum. Fecal pattern is normal. There are no pathologic calcifica tions over the kidneys. IMPRESSION: Pulmonary fibrotic changes. Nonacute abdomen. Chest x-ray is stable compared to old exam. Scarring at the left lung base.
[2017-05-06 00:34] LABS: Appearance,Urine Clear (Clear); Bilirubin,Urine Negative (Negative); Blood,Urine Negative (Negative); Color,Urine Yellow; Glucose,Urine (UA) Negative (Negative); Ketones,Urine 1+ (Negative); Leukocyte Esterase,Urine Trace (Negative); Mucus,Urine Rare /hpf; PH, Urine 6.5 (5.0-8.0); Protein,Urine Trace (Negative); RBC,Urine 4 /hpf (0-5); Squamous Epithelial Cell,Urine <1 /hpf (0-4); Urobilinogen,Urine <2.0 mg/dL (<2.0); WBC,Urine 1 /hpf (0-5)
[2017-05-06] MEDS ORDERED: cefTRIAXone IN SWFI 1,000 MG/10 ML SYRINGE IVP STA (00:42)
[2017-05-06] MEDS ORDERED: cefTRIAXone IN SWFI 2,000 MG/20 ML SYRINGE IVP STA (00:44)
--- NOTE | 2017-05-06 00:52 | ED ---
Nausea/Vomiting/Diarrhea HPI - General Chief complaint: Nausea/Vomiting/Diarrhea Stated complaint: NVD Time Seen by Provider: 05/05/17 23:51 Source: EMS Mode of arrival: EMS Limitations: no limitations - History of Present Illness Initial comments: DD 6 years old male came in with vomiting and diarrhea he threw up a few times, he moved his bowels several several times he lost count of the Ms. complaining about mild diffuse abdominal pain. Patient and he was recently diagnosed with leukemia. July room he had chills and rigors C at all time getting warm he said he was using heating pads and several layers to get warm. He did go to see his in a correction and he feels maybe a pack A bug from the correction. He does have a history of heart disease atrial fibrillation but he denies any chest pain no shortness of breath mild abdominal pain no frequency urgency dysuria no blood in the stool - Related Data Home Medications Medication Instructions Recorded Confirmed Enalapril [Vasotec] 20 mg PO DAILY 07/17/13 03/01/17 Nitroglycerin Sl Tabs [Nitrostat] 0.4 mg SUBLINGUAL Q5M PRN 07/17/13 03/01/17 Simvastatin [Zocor] 20 mg PO HS 07/17/13 03/01/17 Warfarin [Coumadin] 2.5 mg PO DIRECTED 07/17/13 03/01/17 Warfarin [Coumadin] 5 mg PO DIRECTED 07/17/13 03/01/17 Acetaminophen [Tylenol Arthritis] 650 mg PO Q6H PRN 03/01/17 03/01/17 Magnesium Oxide [Mag-Ox] 400 mg PO DAILY 03/01/17 03/01/17 [place]-3 Fatty Acids/Fish Oil [Fish 1 cap PO DAILY 03/01/17 03/01/17 Oil 1,000 mg Softgel] Previous Rx's Medication Instructions Recorded Albuterol Inhaler [Ventolin Hfa 2 puff INHALATION Q4HR PRN #1 03/01/17 Inhaler] inhaler methylPREDNISolone Dose Pack 24 mg PO DAILY #1 tab 03/01/17 [Medrol Dose Pack] Allergies Allergy/AdvReac Type Severity Reaction Status Date / Time No Known Allergies Allergy Verified 05/05/17 23:59 Review of Systems ROS Statement: Those systems with pertinent positive or pertinent negative responses have been documented in the HPI. ROS Other: All systems not noted in ROS Statement are negative. Past Medical History Past Medical History: Atrial Fibrillation, Asthma, Coronary Artery Disease (CAD) , Cancer, Chest Pain / Angina, Diabetes Mellitus, Hyperlipidemia, Hypertension, Memory Impairment, Myocardial Infarction ([place]), Osteoarthritis (OA), Skin Disorder Additional Past Medical History / Comment(s): hx bilateral inguinal hernia, rt foot and bilateral wrists broken - decades ago Last Myocardial Infarction Date:: 2003 History of Any Multi-Drug Resistant Organisms: None Reported Past Surgical History: Adenoidectomy, Coronary Bypass/CABG, Heart Catheterization With Stent, Orthopedic Surgery, Tonsillectomy Additional Past Surgical History / Comment(s): left arm surg in 1946. Lt knee surg.- decades ago Past Anesthesia/Blood Transfusion Reactions: No Reported Reaction Date of Last Stent Placement:: 2000 Past Psychological History: Anxiety Smoking Status: Former smoker Past Alcohol Use History: None Reported Past Drug Use History: None Reported - Past Family History Mother Family Medical History: Myocardial Infarction ([place]) Additional Family Medical History / Comment(s): Mother at age 82 from myocardial infarction. She worked as a nurse. Sister(s) Family Medical History: Cancer Additional Family Medical History / Comment(s): Sister from unknown type of cancer. Brother(s) Family Medical History: No Reported History Additional Family Medical History / Comment(s): Patient has 1 brother that is living with no significant medical problems. Son(s) Family Medical History: No Reported History Additional Family Medical History / Comment(s): Patient has 2 sons with no major medical problems. Father Family Medical History: Cancer Additional Family Medical History / Comment(s): Father at age 79 from kidney and bladder cancer. General Exam Limitations: no limitations Course Vital Signs 05/05/17 05/06/17 23:51 00:18 Temperature 100.4 F H Pulse Rate 85 80 Respiratory 18 18 Rate Blood Pressure 160/75 161/76 O2 Sat by Pulse 95 94 L Oximetry Patient was reassessed at,1248 his white count is elevated is 15.3 L a left shift there compressive metabolic panel looks good glucose is 1:30 his acute series of the abdomen are unremarkable no obvious obstruction there might have ordered lactate and blood cultures once and noticed that he has a mild fever 100.6 and I will go ahead and give her 2 g of Rocephin as C. diff is ordered we don't have a sample yet, to be getting Coumadin 2.5 mg today he forgot to take his Coumadin I have ordered the PT and INR now and one for tomorrow Medical Decision Making - Lab Data Result diagrams: 05/05/17 23:57 05/05/17 23:57 Lab Results 05/05/17 05/05/17 05/06/17 Range/Units 23:57 23:57 00:20 WBC 15.4 H (3.8-10.6) k/uL RBC 4.22 L (4.30-5.90) m/uL Hgb 14.0 (13.0-17.5) gm/dL Hct 43.2 (39.0-53.0) % MCV 102.2 H (80.0-100.0) fL MCH 33.2 (25.0-35.0) pg MCHC 32.5 (31.0-37.0) g/dL RDW 14.1 (11.5-15.5) % Plt Count 211 (150-450) k/uL Neutrophils % 71 % Lymphocytes % 22 % Monocytes % 3 % Eosinophils % 1 % Basophils % 0 % Neutrophils # 10.9 H (1.3-7.7) k/uL Lymphocytes # 3.4 (1.0-4.8) k/uL Monocytes # 0.5 (0-1.0) k/uL Eosinophils # 0.2 (0-0.7) k/uL Basophils # 0.0 (0-0.2) k/uL Macrocytosis Slight Sodium 139 (137-145) mmol/L Potassium 5.0 (3.5-5.1) mmol/L Chloride 105 (98-107) mmol/L Carbon Dioxide 26 (22-30) mmol/L Anion Gap 8 mmol/L BUN 20 (9-20) mg/dL Creatinine 0.80 (0.66-1.25) mg/dL Est GFR (MDRD) Af Amer >60 (>60 ml/min/1.73 sqM) Est GFR (MDRD) Non-Af >60 (>60 ml/min/1.73 sqM) Glucose 130 H (74-99) mg/dL Calcium 8.8 (8.4-10.2) mg/dL Total Bilirubin 1.3 (0.2-1.3) mg/dL AST 25 (17-59) U/L ALT 25 (21-72) U/L Alkaline Phosphatase 48 (38-126) U/L Total Protein 6.6 (6.3-8.2) g/dL Albumin 3.8 (3.5-5.0) g/dL Amylase 53 (30-110) U/L Lipase 157 (23-300) U/L Urine Color Yellow Urine Appearance Clear (Clear) Urine pH 6.5 (5.0-8.0) Ur Specific [place] 1.020 (1.001-1.035) Urine Protein Trace H (Negative) Urine Glucose (UA) Negative (Negative) Urine Ketones 1+ H (Negative) Urine Blood Negative (Negative) Urine Nitrite Negative (Negative) Urine Bilirubin Negative (Negative) Urine Urobilinogen <2.0 (<2.0) mg/dL Ur Leukocyte Esterase Trace H (Negative) Urine RBC 4 (0-5) /hpf Urine WBC 1 (0-5) /hpf Ur Squamous Epith Cells <1 (0-4) /hpf Urine Mucus Rare H (None) /hpf Disposition Clinical Impression: Nausea and vomiting, Diarrhea Disposition: ADMITTED IP TO THIS [facility] Condition: Good Referrals: Stiven Middleton DO [Primary Care Provider] - 1-2 days
[2017-05-06] MEDS ORDERED: ONDANSETRON 4 MG/2 ML VIAL IVP PRN (00:53)
[2017-05-06] MEDS ORDERED: LOPERAMIDE 2 MG CAP PO PRN (00:53)
[2017-05-06] MEDS ORDERED: NALOXONE 0.4 MG/ML 1 ML VIAL IV PRN (00:53)
[2017-05-06] MEDS ORDERED: ALBUTEROL NEBULIZED 2.5 MG/3 ML INHALATION PRN (01:04)
[2017-05-06] MEDS ORDERED: NITROGLYCERIN SL TABS 0.4 MG TAB SUBLINGUAL PRN (01:04)
[2017-05-06] MEDS ORDERED: ACETAMINOPHEN TAB 325 MG TAB PO PRN (01:04)
[2017-05-06 01:42] LABS: INR 2.3 (<1.2); Prothrombin Time 20.8 sec (9.0-12.0)
[2017-05-06 07:50] LABS: Glucose,Whole Blood 95 mg/dL (75-99)
[2017-05-06] MEDS: LISINOPRIL 20 MG TAB PO SCH (09:23)
[2017-05-06] MEDS: NON-FORMULARY DRUG (Omega-3 Fatty Acids/Fish Oil [Fish Oil 1,000 Mg Softgel] 1 CAP) PO SCH (09:24)
[2017-05-06] MEDS: MAGNESIUM OXIDE 400 MG TAB PO SCH (09:24)
[2017-05-06] MEDS ORDERED: RX INFO: IV CONTRAST WAS GIVEN 1 EACH MISC MISCELLANE PRN (10:34)
[2017-05-06] MEDS: IOHEXOL 350 MG/ML 25 ML BOTTLE (ORAL USE) PO PRN ×2 (10:47→12:06)
[2017-05-06 10:53] LABS: Basophils % (A) 0 %; Eosinophils # (A) 0.1 k/uL (0-0.7); Eosinophils % (A) 1 %; HGB 12.9 gm/dL (13.0-17.5); Lymphocytes # (A) 3.3 k/uL (1.0-4.8); Lymphocytes % (A) 31 %; MCH 33.5 pg (25.0-35.0); MCHC 32.3 g/dL (31.0-37.0); MCV 103.8 fL (80.0-100.0); Macrocytosis Slight; Mean Platelet Volume 7.1; Monocytes # (A) 0.5 k/uL (0-1.0); Monocytes % (A) 4 %; Neutrophils # (A) 6.3 k/uL (1.3-7.7); Neutrophils % (A) 59 %; Platelet Count 181 k/uL (150-450); RBC 3.85 m/uL (4.30-5.90); RDW 14.2 % (11.5-15.5); WBC 10.6 k/uL (3.8-10.6)
[2017-05-06] MEDS: LEVOFLOXACIN 500MG-D5W PMX 500 MG in DEXTROSE/WATER 1 100ML.BAG IVPB SCH (12:06)
[2017-05-06 12:55] LABS: Glucose,Whole Blood 104 mg/dL (75-99)
[2017-05-06] MEDS: metroNIDAZOLE 500 MG TAB PO SCH ×3 (12:56→20:39)
--- NOTE | 2017-05-06 12:58 | CT ---
EXAMINATION TYPE: CT abdomen pelvis w con DATE OF EXAM: 05/06/2017 COMPARISON: NONE HISTORY: RLQ pain, diarrhea CT DLP: 2095 mGycm Automated exposure control for dose reduction was used. TECHNIQUE: Helical acquisition of images was performed from the lung bases through the pelvis. CONTRAST: Performed with Oral Contrast and with IV Contrast, patient injected with 100 mL of Omnipaque 300. FINDINGS: There is some patchy mild infiltrate and atelectasis at the lung bases. There is no pleural effusion. Heart is enlarged. Liver spleen pancreas gallbladder appear normal. Bile ducts are not dilated. There is no adrenal mass. Kidneys show satisfactory contrast opacification. There is no hydronephrosi s. There are 2 left renal cortical cysts that measure up to 1.5 cm. There is no hydronephrosis. There is no retroperitoneal adenopathy. Bladder distends smoothly. There is no sign of a pelvic mass. Ther e is no ascites. There is no sign of free air. Appendix appears normal. I see no intestinal wall thic kening. There are no dilated loops. There is multilevel spondylosis in the lumbar spine. IMPRESSION: MULTILEVEL LUMBAR SPONDYLOSIS. SMALL LEFT RENAL CORTICAL CYSTS. NO SIGN OF ACUTE ABDOMEN AND PELVIS. PATCHY DENSITY AT THE LUNG BASES CONSISTENT WITH FIBROSIS AND MILD INFILTRATE.
--- NOTE | 2017-05-06 12:59 | P.HPIM ---
History of Present Illness H&P Date: 05/06/17 Chief Complaint: Vomiting and diarrhea This is an 86-year-old gentleman. He is a patient of Dr. Zane arreaga with past medical history of atrial fibrillation on Coumadin, coronary artery disease status post CABG 3 vessel and PCI, skin cancer, diabetes mellitus type 2 , hyperlipidemia, hypertension, memory impairment, osteoarthritis, psoriasis. He states he Had onset of vomiting yesterday apparently multiple times of low as diarrhea 2 times yesterday and one time this morning. He states his stools have been loose and watery. He was visiting his up at [facility] and she has been a patient there since June of last year. She is also having same symptoms he has developed. Patient denies having any shortness of breath or cough or sputum production. He does have some tenderness to the right lower quadrant and generalized discomfort. Patient presented to [facility] emergency center with the above complaints. Temperature max is 100.4. White count of 15.4 creatinine 0.8. Amylase and lipase were within normal limits. Liver function test and electrolytes were within normal limits. Urinalysis was clear nitrate and leukoesterase negative. Influenza testing was negative. C. diff toxin was negative. Patient was given a Zofran, 2 L of IV fluids and Rocephin [facility] Review of Systems All systems: negative Constitutional: Reports anorexia, Reports fatigue, Reports poor appetite, Reports weakness, Denies chills, Denies fever, Denies sweats Eyes: denies blurred vision, denies pain Ears, nose, mouth and throat: Denies headache, Denies sore throat Cardiovascular: Denies chest pain, Denies shortness of breath Respiratory: Denies congestion, Denies cough, Denies cough with sputum, Denies dyspnea, Denies excessive sputum, Denies hemoptysis, Denies home oxygen, Denies wheezing Gastrointestinal: Reports abdominal pain, Reports diarrhea, Reports loss of appetite, Reports nausea, Reports vomiting Genitourinary: Denies dysuria Musculoskeletal: Denies myalgias Integumentary: Denies pruritus, Denies rash Neurological: Denies numbness, Denies weakness Psychiatric: Denies anxiety, Denies depression Endocrine: Denies fatigue, Denies weight change Past Medical History Past Medical History: Atrial Fibrillation, Asthma, Coronary Artery Disease (CAD) , Cancer, Chest Pain / Angina, Diabetes Mellitus, Hyperlipidemia, Hypertension, Memory Impairment, Myocardial Infarction ([place]), Osteoarthritis (OA), Skin Disorder Additional Past Medical History / Comment(s): hx bilateral inguinal hernia, rt foot and bilateral wrists broken - decades ago Last Myocardial Infarction Date:: 2003 History of Any Multi-Drug Resistant Organisms: None Reported Past Surgical History: Adenoidectomy, Coronary Bypass/CABG, Heart Catheterization With Stent, Orthopedic Surgery, Tonsillectomy Additional Past Surgical History / Comment(s): left arm surg in 1946. Lt knee surg.- decades ago Past Anesthesia/Blood Transfusion Reactions: No Reported Reaction Date of Last Stent Placement:: 2000 Past Psychological History: Anxiety Smoking Status: Former smoker Past Alcohol Use History: None Reported Additional Past Alcohol Use History / Comment(s): Patient was a smoker of half a pack to 1 pack of cigarettes per 64 years. He denies any alcohol abuse. 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 Past Drug Use History: None Reported - Past Family History Mother Family Medical History: Myocardial Infarction ([place]) Additional Family Medical History / Comment(s): Mother at age 82 from myocardial infarction. She worked as a nurse. Sister(s) Family Medical History: Cancer Additional Family Medical History / Comment(s): Sister from unknown type of cancer. Brother(s) Family Medical History: No Reported History Additional Family Medical History / Comment(s): Patient has 1 brother that is living with no significant medical problems. Son(s) Family Medical History: No Reported History Additional Family Medical History / Comment(s): Patient has 2 sons with no major medical problems. Father Family Medical History: Cancer Additional Family Medical History / Comment(s): Father at age 79 from kidney and bladder cancer. Medications and Allergies Home Medications Medication Instructions Recorded Confirmed Type Enalapril [Vasotec] 20 mg PO DAILY 07/17/13 05/06/17 History Nitroglycerin Sl Tabs [Nitrostat] 0.4 mg SUBLINGUAL Q5M PRN 07/17/13 05/06/17 History Simvastatin [Zocor] 20 mg PO HS 07/17/13 05/06/17 History Warfarin [Coumadin] 2.5 mg PO MOTUTHFRSA 07/17/13 05/06/17 History Warfarin [Coumadin] 5 mg PO SUWE 07/17/13 05/06/17 History Acetaminophen [Tylenol Arthritis] 650 mg PO Q6H PRN 03/01/17 05/06/17 History Albuterol Inhaler [Ventolin Hfa 2 puff INHALATION Q4HR PRN #1 03/01/17 05/06/17 Rx Inhaler] inhaler Magnesium Oxide [Mag-Ox] 400 mg PO DAILY 03/01/17 05/06/17 History [place]-3 Fatty Acids/Fish Oil [Fish 1 cap PO DAILY 03/01/17 05/06/17 History Oil 1,000 mg Softgel] Ascorbic Acid [Vitamin C] 500 mg PO DAILY 05/06/17 05/06/17 History B12/Levomefolate Calcium/B-6 1 tab PO DAILY 05/06/17 05/06/17 History [Foltx Tablet] Allergies Allergy/AdvReac Type Severity Reaction Status Date / Time No Known Allergies Allergy Verified 05/06/17 08:41 Physical Exam Vitals: Vital Signs Temp Pulse Pulse Resp BP BP BP 05/06/17 06:41 97.8 F 77 20 05/06/17 03:37 97.9 F 74 18 120/65 05/06/17 01:26 82 18 137/64 149/71 05/06/17 01:22 97.4 F L 05/06/17 00:18 80 18 161/76 05/05/17 23:51 100.4 F H 85 18 160/75 BP Pulse Ox 05/06/17 06:41 148/72 96 05/06/17 03:37 99 05/06/17 01:26 135/66 05/06/17 01:22 05/06/17 00:18 94 L 05/05/17 23:51 95 Intake and Output 05/05/17 05/06/17 05/06/17 22:59 06:59 14:59 Intake Total 200 Balance 200 Intake: Oral 200 Other: # Voids 2 # Bowel Movements 2 Weight 113.398 kg Gen: This is a 86-year-old gentleman. He is sitting up in bed and appears to be in no acute distress. HEENT: Head is atraumatic, normocephalic. Pupils equal, round. Sclerae is anicteric. NECK: Supple. No JVD. No lymphadenopathy. No thyromegaly. No carotid bruit LUNGS: Clear to auscultation. No wheezes or rhonchi. No intercostal retractions. HEART: Irregularly irregular and rhythm. Systolic murmur. ABDOMEN: Soft. Bowel sounds are present. No masses. Generalized tenderness mostly severe in the right lower quadrant. EXTREMITIES: No pedal edema. No calf tenderness. Dorsalis pedis +2 bilaterally. NEUROLOGICAL: Patient is awake, alert and oriented x3. Cranial nerves 2 through 12 are grossly intact. Results CBC & Chem 7: 05/06/17 10:38 05/05/17 23:57 Labs: Abnormal Lab Results - Last 24 Hours (Table) 05/05/17 05/05/17 05/05/17 Range/Units 23:57 23:57 23:57 WBC 15.4 H (3.8-10.6) k/uL RBC 4.22 L (4.30-5.90) m/uL MCV 102.2 H (80.0-100.0) fL Neutrophils # 10.9 H (1.3-7.7) k/uL PT 20.8 H (9.0-12.0) sec INR 2.3 H (<1.2) Glucose 130 H (74-99) mg/dL Urine Protein (Negative) Urine Ketones (Negative) Ur Leukocyte Esterase (Negative) Urine Mucus (None) /hpf 05/06/17 Range/Units 00:20 WBC (3.8-10.6) k/uL RBC (4.30-5.90) m/uL MCV (80.0-100.0) fL Neutrophils # (1.3-7.7) k/uL PT (9.0-12.0) sec INR (<1.2) Glucose (74-99) mg/dL Urine Protein Trace H (Negative) Urine Ketones 1+ H (Negative) Ur Leukocyte Esterase Trace H (Negative) Urine Mucus Rare H (None) /hpf Thrombosis Risk Factor Assmnt - DVT/VTE Prophylaxis DVT/VTE Prophylaxis: Pharmacologic Prophylaxis ordered - Choose All That Apply Any of the Below Risk Factors Present?: Yes Each Factor Represents 1 point: Abnormal pulmonary function (COPD), Obesity ( BMI >25), Swollen legs (current) Other Risk Factors: Yes Each Risk Factor Represents 3 Points: Age 75 years or older Other congenital or acquired thrombophilia - If yes, enter type in comment: No Thrombosis Risk Factor Assessment Total Risk Factor Score: 6 Thrombosis Risk Factor Assessment Level: High Risk Assessment and Plan Plan: 1. Gastroenteritis with dehydration. Patient has been given 2 L of IV fluids. Continue Zofran for nausea. Patient placed on Levaquin and Flagyl for possible diverticulitis. CAT scan of the abdomen and pelvis ordered. 2. History of hypertension. Continue lisinopril. 3. History of coronary artery disease with previous CABG and PCI, stable. 4. History of atrial fibrillation, rate controlled. Patient will resume Coumadin at normal dosing. Monitor INR. 5. Hyperlipidemia. Continue Lipitor. 6. DVT prophylaxis. Lovenox. GI prophylaxis. Pepcid Patient has been admitted for a minimum of 2 night stay. Discharge plan: Return home. Impression and plan of care have been directed as dictated by the signing physician. Brenda Mi nurse practitioner acting as scribe for signing physician.
[2017-05-06 17:30] LABS: Glucose,Whole Blood 95 mg/dL (75-99)
[2017-05-06] MEDS ORDERED: WARFARIN 2.5 MG TAB PO ONE (18:00)
[2017-05-06] MEDS ORDERED: WARFARIN 5 MG TAB PO SCH (18:00)
[2017-05-06] MEDS ORDERED: ATORVASTATIN 10 MG TAB PO SCH (21:00)
[2017-05-06 21:41] LABS: Glucose,Whole Blood 103 mg/dL (75-99)
[2017-05-06 23:42] VITALS: PULSE 73
[2017-05-07 07:55] LABS: Glucose,Whole Blood 94 mg/dL (75-99)
[2017-05-07 08:07] VITALS: BP 141/67; RESP 16; TEMP 98.4
[2017-05-07] MEDS: NON-FORMULARY DRUG (Omega-3 Fatty Acids/Fish Oil [Fish Oil 1,000 Mg Softgel] 1 CAP) PO SCH (08:07)
[2017-05-07] MEDS: MAGNESIUM OXIDE 400 MG TAB PO SCH (08:08)
[2017-05-07] MEDS: LISINOPRIL 20 MG TAB PO SCH (08:08)
[2017-05-07] MEDS: metroNIDAZOLE 500 MG TAB PO SCH (08:08)
[2017-05-07] MEDS ORDERED: CYANOCOBALAMIN-FA-PYRIDOXINE 1 EACH TAB PO SCH (09:00)
[2017-05-07] MEDS ORDERED: ASCORBIC ACID 500 MG TAB PO SCH (09:00)
[2017-05-07] MEDS ORDERED: FAMOTIDINE 20 MG TAB PO SCH (09:00)
[2017-05-07 09:03] LABS: INR 2.1 (<1.2)
[2017-05-07 09:25] LABS: HCT 36.8 % (39.0-53.0); HGB 12.4 gm/dL (13.0-17.5); MCH 34.4 pg (25.0-35.0); MCHC 33.7 g/dL (31.0-37.0); MCV 102.1 fL (80.0-100.0); Macrocytosis Slight; Mean Platelet Volume 7.9; Platelet Count 155 k/uL (150-450); WBC 6.4 k/uL (3.8-10.6)
[2017-05-07] MEDS: LEVOFLOXACIN 500MG-D5W PMX 500 MG in DEXTROSE/WATER 1 100ML.BAG IVPB SCH (11:14)
[2017-05-07 11:55] LABS: Band Neutrophils % 1 %; Lymphocytes # (M) 1.79 k/uL (1.0-4.8); Monocytes # (M) 0.64 k/uL (0-1.0); Neutrophils % (M) 61 %; Nucleated Red Blood Cells 0 /100 WBC (0-0); Total Cells Counted 100
[2017-05-07 12:06] LABS: Glucose,Whole Blood 110 mg/dL (75-99)
--- NOTE | 2017-05-07 15:11 | P.DS ---
Providers Date of admission: 05/06/17 00:59 Expected date of discharge: 05/07/17 Attending physician: Jay Telles MD Primary care physician: [facility] Course: This is an 86-year-old gentleman. He is a patient of Dr. Middleton' gibson with past medical history of atrial fibrillation on Coumadin, coronary artery disease status post CABG 3 vessel and PCI, skin cancer, diabetes mellitus type 2 , hyperlipidemia, hypertension, memory impairment, osteoarthritis, psoriasis. He states he Had onset of vomiting yesterday apparently multiple times of low as diarrhea 2 times yesterday and one time this morning. He states his stools have been loose and watery. He was visiting his up at [facility] and she has been a patient there since June of last year. She is also having same symptoms he has developed. Patient denies having any shortness of breath or cough or sputum production. He does have some tenderness to the right lower quadrant and generalized discomfort. Patient presented to [facility] emergency center with the above complaints. Temperature max is 100.4. White count of 15.4 creatinine 0.8. Amylase and lipase were within normal limits. Liver function test and electrolytes were within normal limits. Urinalysis was clear nitrate and leukoesterase negative. Influenza testing was negative. C. diff toxin was negative. Patient was given a Zofran, 2 L of IV fluids and Rocephin and admitted to the [facility] floor. 05/07: Patient did have a few episodes of diarrhea. In general he is feeling better and would like to be discharged home today. Patient will be discharged home with Flagyl and Imodium. C. difficile toxin was negative. CT of the abdomen and pelvis with contrast revealed multilevel lumbar spondylosis. Small left renal cortical cyst. No sign of acute abdomen and pelvis. Patchy density at the lung bases consistent with fibrosis and mild infiltrate. Discharge diagnoses: 1. Gastroenteritis with dehydration. 2. History of hypertension. 3. History of coronary artery disease with previous CABG and PCI, stable. 4. History of atrial fibrillation, rate controlled. 5. Hyperlipidemia. Discharge plan: Return home. Impression and plan of care have been directed as dictated by the signing physician. Brenda Mi nurse practitioner acting as scribe for signing physician. Patient Condition at Discharge: Good Plan - Discharge Summary Discharge Rx Participant: Yes New Discharge Prescriptions: New Loperamide [Imodium] 2 mg PO Q6HR PRN cap PRN Reason: Loose Stool metroNIDAZOLE [Flagyl] 500 mg PO TID #15 tab Continue Nitroglycerin Sl Tabs [Nitrostat] 0.4 mg SUBLINGUAL Q5M PRN PRN Reason: Chest Pain Warfarin [Coumadin] 2.5 mg PO MOTUTHFRSA Warfarin [Coumadin] 5 mg PO SUWE Simvastatin [Zocor] 20 mg PO HS Enalapril [Vasotec] 20 mg PO DAILY Acetaminophen [Tylenol Arthritis] 650 mg PO Q6H PRN PRN Reason: Fever And/ Or Pain [place]-3 Fatty Acids/Fish Oil [Fish Oil 1,000 mg Softgel] 1 cap PO DAILY Albuterol Inhaler [Ventolin Hfa Inhaler] 2 puff INHALATION Q4HR PRN #1 inhaler PRN Reason: Dyspnea Ascorbic Acid [Vitamin C] 500 mg PO DAILY B12/Levomefolate Calcium/B-6 [Foltx Tablet] 1 tab PO DAILY Discontinued Magnesium Oxide [Mag-Ox] 400 mg PO DAILY Discharge Medication List Enalapril [Vasotec] 20 mg PO DAILY 07/17/13 [History] Nitroglycerin Sl Tabs [Nitrostat] 0.4 mg SUBLINGUAL Q5M PRN 07/17/13 [History] Simvastatin [Zocor] 20 mg PO HS 07/17/13 [History] Warfarin [Coumadin] 2.5 mg PO MOTUTHFRSA 07/17/13 [History] Warfarin [Coumadin] 5 mg PO SUWE 07/17/13 [History] Acetaminophen [Tylenol Arthritis] 650 mg PO Q6H PRN 03/01/17 [History] Albuterol Inhaler [Ventolin Hfa Inhaler] 2 puff INHALATION Q4HR PRN #1 inhaler 03/01/17 [Rx] [place]-3 Fatty Acids/Fish Oil [Fish Oil 1,000 mg Softgel] 1 cap PO DAILY [History] Ascorbic Acid [Vitamin C] 500 mg PO DAILY 05/06/17 [History] B12/Levomefolate Calcium/B-6 [Foltx Tablet] 1 tab PO DAILY 05/06/17 [History] Loperamide [Imodium] 2 mg PO Q6HR PRN cap 05/07/17 [Rx] metroNIDAZOLE [Flagyl] 500 mg PO TID #15 tab 05/07/17 [Rx] Follow up Appointment(s)/Referral(s): Stiven Middleton DO [Primary Care Provider] - 1 Week (office will call you with appointment) Patient Instructions/Handouts: Gastroenteritis (DC) Discharge Disposition: HOME SELF-CARE
[2017-05-07] MEDS ORDERED: WARFARIN 2.5 MG TAB PO SCH (18:00)
== END 2017-05-07 14:26 | disposition home or self-care (01) | DRG 392 ==
LOC: EC 23:48 → 4MS4W 05-06 00:59
PROVIDERS: ADMIT Internal Medicine; ATTEND Internal Medicine
DX: K52.9 Noninfective gastroenteritis and colitis, unspecified (principal); I48.91 Unspecified atrial fibrillation; E86.0 Dehydration; E11.9 Type 2 diabetes mellitus without complications; E78.5 Hyperlipidemia, unspecified; F41.9 Anxiety disorder, unspecified; I10 Essential (primary) hypertension; J98.4 Other disorders of lung; I25.10 Atherosclerotic heart disease of native coronary artery without angina pectoris; I25.2 Old myocardial infarction; J45.909 Unspecified asthma, uncomplicated; M47.816 Spondylosis without myelopathy or radiculopathy, lumbar region; Z79.01 Long term (current) use of anticoagulants; Z79.899 Other long term (current) drug therapy; Z80.52 Family history of malignant neoplasm of bladder; Z82.49 Family history of ischemic heart disease and other diseases of the circulatory system; Z85.6 Personal history of leukemia; Z85.828 Personal history of other malignant neoplasm of skin; Z87.891 Personal history of nicotine dependence; Z95.1 Presence of aortocoronary bypass graft; Z98.61 Coronary angioplasty status
CPT/HCPCS: 36415; 74022; 74177; 80053; 81001; 82150; 83605; 83690; 85025; 85610; 87040; 87086; 87324; 87502; 93005; 96361; 96374; 99285

== ENCOUNTER 2018-02-11 03:44 | Emergency (ER) | payer MEDICARE, OTHER ==
[2018-02-11 03:49] VITALS: TEMP 98.5
[2018-02-11] MEDS ORDERED: methylPREDNISolone SOD SUCCI 125 MG/2 ML VIAL IV STA (04:03)
[2018-02-11] MEDS ORDERED: IPRATROPIUM 0.5 MG/2.5 ML NEBU INHALATION STA (04:03)
[2018-02-11] MEDS ORDERED: ALBUTEROL NEBULIZED 2.5 MG/3 ML INHALATION STA (04:03)
--- NOTE | 2018-02-11 04:07 | ED ---
General Adult HPI - General Chief complaint: Shortness of Breath Stated complaint: CHRISTIANO Time Seen by Provider: 02/11/18 03:50 Source: patient, RN notes reviewed, old records reviewed Mode of arrival: ambulatory Limitations: no limitations - History of Present Illness Initial comments: 87 -year-old male presents for evaluation of cough and dyspnea. Patient's symptoms have progressed over the past several days. He reports rhinorrhea, mild sore throat. Patient has history of atrial fibrillation, he is on Coumadin. He denies chest pain. Denies lower extremity swelling. History of CAD status post open heart surgery remotely. Past history of asthma. He reports cough is productive of yellow sputum. Denies fever or chills. - Related Data Home Medications Medication Instructions Recorded Confirmed Enalapril [Vasotec] 20 mg PO DAILY 07/17/13 05/06/17 Nitroglycerin Sl Tabs [Nitrostat] 0.4 mg SUBLINGUAL Q5M PRN 07/17/13 05/06/17 Simvastatin [Zocor] 20 mg PO HS 07/17/13 05/06/17 Warfarin [Coumadin] 2.5 mg PO MOTUTHFRSA 07/17/13 05/06/17 Warfarin [Coumadin] 5 mg PO SUWE 07/17/13 05/06/17 Acetaminophen [Tylenol Arthritis] 650 mg PO Q6H PRN 03/01/17 05/06/17 [place]-3 Fatty Acids/Fish Oil [Fish 1 cap PO DAILY 03/01/17 05/06/17 Oil 1,000 mg Softgel] Ascorbic Acid [Vitamin C] 500 mg PO DAILY 05/06/17 05/06/17 B12/Levomefolate Calcium/B-6 1 tab PO DAILY 05/06/17 05/06/17 [Foltx Tablet] Previous Rx's Medication Instructions Recorded Albuterol Inhaler [Ventolin Hfa 2 puff INHALATION Q4HR PRN #1 03/01/17 Inhaler] inhaler Loperamide [Imodium] 2 mg PO Q6HR PRN cap 05/07/17 metroNIDAZOLE [Flagyl] 500 mg PO TID #15 tab 05/07/17 Albuterol Inhaler [Ventolin Hfa 1 - 2 puff INHALATION Q4HR PRN #1 02/11/18 Inhaler] inhaler Azithromycin [Zithromax Z-pack] 0 mg PO DIRECTED #6 tab 02/11/18 predniSONE 50 mg PO DAILY #5 tab 02/11/18 Allergies Allergy/AdvReac Type Severity Reaction Status Date / Time No Known Allergies Allergy Verified 02/11/18 03:49 Review of Systems ROS Statement: Those systems with pertinent positive or pertinent negative responses have been documented in the HPI. ROS Other: All systems not noted in ROS Statement are negative. Past Medical History Past Medical History: Atrial Fibrillation, Asthma, Coronary Artery Disease (CAD) , Cancer, Chest Pain / Angina, Diabetes Mellitus, Hyperlipidemia, Hypertension, Memory Impairment, Myocardial Infarction ([place]), Osteoarthritis (OA), Skin Disorder Additional Past Medical History / Comment(s): hx bilateral inguinal hernia, rt foot and bilateral wrists broken - decades ago Last Myocardial Infarction Date:: 2003 History of Any Multi-Drug Resistant Organisms: None Reported Past Surgical History: Adenoidectomy, Coronary Bypass/CABG, Heart Catheterization With Stent, Orthopedic Surgery, Tonsillectomy Additional Past Surgical History / Comment(s): left arm surg in 1946. Lt knee surg.- decades ago Past Anesthesia/Blood Transfusion Reactions: No Reported Reaction Date of Last Stent Placement:: 2000 Past Psychological History: Anxiety Smoking Status: Former smoker Past Alcohol Use History: None Reported Past Drug Use History: None Reported - Past Family History Mother Family Medical History: Myocardial Infarction ([place]) Additional Family Medical History / Comment(s): Mother at age 82 from myocardial infarction. She worked as a nurse. Sister(s) Family Medical History: Cancer Additional Family Medical History / Comment(s): Sister from unknown type of cancer. Brother(s) Family Medical History: No Reported History Additional Family Medical History / Comment(s): Patient has 1 brother that is living with no significant medical problems. Son(s) Family Medical History: No Reported History Additional Family Medical History / Comment(s): Patient has 2 sons with no major medical problems. Father Family Medical History: Cancer Additional Family Medical History / Comment(s): Father at age 79 from kidney and bladder cancer. General Exam Limitations: no limitations General appearance: alert, in no apparent distress Eye exam: Present: normal appearance, PERRL ENT exam: Present: normal exam Neck exam: Present: normal inspection. Absent: tenderness, meningismus Respiratory exam: Present: wheezes, rhonchi. Absent: respiratory distress Cardiovascular Exam: Present: regular rate, irregular rhythm GI/Abdominal exam: Present: soft. Absent: distended, tenderness, guarding Extremities exam: Present: normal inspection, normal capillary refill. Absent: pedal edema, calf tenderness Neurological exam: Present: alert, oriented X3 Psychiatric exam: Present: normal affect, normal mood Skin exam: Present: warm, dry, intact. Absent: cyanosis, diaphoretic Course Vital Signs 02/11/18 02/11/18 02/11/18 03:47 04:27 04:42 Temperature 98.5 F Pulse Rate 76 83 88 Respiratory 18 Rate Blood Pressure 147/80 O2 Sat by Pulse 95 Oximetry EKG Findings - EKG Comments: EKG Findings:: EKG: Atrial fibrillation, rate of 78, QRS duration 88, QTC 446, no ST segment elevation or depression Medical Decision Making - Medical Decision Making 87-year-old male presenting for evaluation of cough and mild dyspnea. Patient has history of asthma and has bronchospastic cough. Chest x-ray obtained, negative for focal pneumonia. Patient has white blood cell count 10.8, hemoglobin stable, INR is therapeutic CMP is within normal limits, troponin and BNP are negative. EKG nonischemic. Patient has stable vital signs and is well- appearing. He does have bronchospastic cough and wheezing throughout. Patient is very eager for discharge home. He will be prescribed azithromycin, steroids , and albuterol. Please return with worsening or changing symptoms. Follow-up with primary care physician. - Lab Data Result diagrams: 02/11/18 04:01 02/11/18 04:01 Lab Results 02/11/18 02/11/18 02/11/18 Range/Units 04:01 04:01 04:01 WBC 10.8 H (3.8-10.6) k/uL RBC 4.22 L (4.30-5.90) m/uL Hgb 13.9 (13.0-17.5) gm/dL Hct 43.4 (39.0-53.0) % MCV 102.7 H (80.0-100.0) fL MCH 32.9 (25.0-35.0) pg MCHC 32.1 (31.0-37.0) g/dL RDW 13.6 (11.5-15.5) % Plt Count 192 (150-450) k/uL Neutrophils % (Manual) 32 % Lymphocytes % (Manual) 57 % Monocytes % (Manual) 7 % Eosinophils % (Manual) 5 % Neutrophils # (Manual) 3.46 (1.3-7.7) k/uL Lymphocytes # (Manual) 6.16 H (1.0-4.8) k/uL Monocytes # (Manual) 0.76 (0-1.0) k/uL Eosinophils # (Manual) 0.54 (0-0.7) k/uL Nucleated RBCs 0 (0-0) /100 WBC Manual Slide Review Performed Macrocytosis Slight PT (9.0-12.0) sec INR (<1.2) APTT (22.0-30.0) sec Sodium 140 (137-145) mmol/L Potassium 4.6 (3.5-5.1) mmol/L Chloride 108 H (98-107) mmol/L Carbon Dioxide 25 (22-30) mmol/L Anion Gap 7 mmol/L BUN 21 H (9-20) mg/dL Creatinine 1.00 (0.66-1.25) mg/dL Est GFR (CKD-EPI)AfAm 77 (>60 ml/min/1.73 sqM) Est GFR (CKD-EPI)NonAf 67 (>60 ml/min/1.73 sqM) Glucose 118 H (74-99) mg/dL Plasma Lactic Acid Sravan (0.7-2.0) mmol/L Calcium 8.6 (8.4-10.2) mg/dL Magnesium 2.0 (1.6-2.3) mg/dL Total Bilirubin 0.4 (0.2-1.3) mg/dL AST 27 (17-59) U/L ALT 33 (21-72) U/L Alkaline Phosphatase 52 (38-126) U/L Total Creatine Kinase 69 (55-170) U/L CK-MB (CK-2) 1.0 (0.0-2.4) ng/mL CK-MB (CK-2) Rel Index 1.4 Troponin I <0.012 (0.000-0.034) ng/mL NT-Pro-B Natriuret Pep pg/mL Total Protein 6.7 (6.3-8.2) g/dL Albumin 3.7 (3.5-5.0) g/dL Influenza Type A RNA (Not Detectd) Influenza Type B (PCR) (Not Detectd) 02/11/18 02/11/18 02/11/18 Range/Units 04:01 04:01 04:01 WBC (3.8-10.6) k/uL RBC (4.30-5.90) m/uL Hgb (13.0-17.5) gm/dL Hct (39.0-53.0) % MCV (80.0-100.0) fL MCH (25.0-35.0) pg MCHC (31.0-37.0) g/dL RDW (11.5-15.5) % Plt Count (150-450) k/uL Neutrophils % (Manual) % Lymphocytes % (Manual) % Monocytes % (Manual) % Eosinophils % (Manual) % Neutrophils # (Manual) (1.3-7.7) k/uL Lymphocytes # (Manual) (1.0-4.8) k/uL Monocytes # (Manual) (0-1.0) k/uL Eosinophils # (Manual) (0-0.7) k/uL Nucleated RBCs (0-0) /100 WBC Manual Slide Review Macrocytosis PT 25.2 H (9.0-12.0) sec INR 2.6 H (<1.2) APTT 33.3 H (22.0-30.0) sec Sodium (137-145) mmol/L Potassium (3.5-5.1) mmol/L Chloride (98-107) mmol/L Carbon Dioxide (22-30) mmol/L Anion Gap mmol/L BUN (9-20) mg/dL Creatinine (0.66-1.25) mg/dL Est GFR (CKD-EPI)AfAm (>60 ml/min/1.73 sqM) Est GFR (CKD-EPI)NonAf (>60 ml/min/1.73 sqM) Glucose (74-99) mg/dL Plasma Lactic Acid Sravan 0.9 (0.7-2.0) mmol/L Calcium (8.4-10.2) mg/dL Magnesium (1.6-2.3) mg/dL Total Bilirubin (0.2-1.3) mg/dL AST (17-59) U/L ALT (21-72) U/L Alkaline Phosphatase (38-126) U/L Total Creatine Kinase (55-170) U/L CK-MB (CK-2) (0.0-2.4) ng/mL CK-MB (CK-2) Rel Index Troponin I (0.000-0.034) ng/mL NT-Pro-B Natriuret Pep 757 pg/mL Total Protein (6.3-8.2) g/dL Albumin (3.5-5.0) g/dL Influenza Type A RNA (Not Detectd) Influenza Type B (PCR) (Not Detectd) 02/11/18 Range/Units 04:11 WBC (3.8-10.6) k/uL RBC (4.30-5.90) m/uL Hgb (13.0-17.5) gm/dL Hct (39.0-53.0) % MCV (80.0-100.0) fL MCH (25.0-35.0) pg MCHC (31.0-37.0) g/dL RDW (11.5-15.5) % Plt Count (150-450) k/uL Neutrophils % (Manual) % Lymphocytes % (Manual) % Monocytes % (Manual) % Eosinophils % (Manual) % Neutrophils # (Manual) (1.3-7.7) k/uL Lymphocytes # (Manual) (1.0-4.8) k/uL Monocytes # (Manual) (0-1.0) k/uL Eosinophils # (Manual) (0-0.7) k/uL Nucleated RBCs (0-0) /100 WBC Manual Slide Review Macrocytosis PT (9.0-12.0) sec INR (<1.2) APTT (22.0-30.0) sec Sodium (137-145) mmol/L Potassium (3.5-5.1) mmol/L Chloride (98-107) mmol/L Carbon Dioxide (22-30) mmol/L Anion Gap mmol/L BUN (9-20) mg/dL Creatinine (0.66-1.25) mg/dL Est GFR (CKD-EPI)AfAm (>60 ml/min/1.73 sqM) Est GFR (CKD-EPI)NonAf (>60 ml/min/1.73 sqM) Glucose (74-99) mg/dL Plasma Lactic Acid Sravan (0.7-2.0) mmol/L Calcium (8.4-10.2) mg/dL Magnesium (1.6-2.3) mg/dL Total Bilirubin (0.2-1.3) mg/dL AST (17-59) U/L ALT (21-72) U/L Alkaline Phosphatase (38-126) U/L Total Creatine Kinase (55-170) U/L CK-MB (CK-2) (0.0-2.4) ng/mL CK-MB (CK-2) Rel Index Troponin I (0.000-0.034) ng/mL NT-Pro-B Natriuret Pep pg/mL Total Protein (6.3-8.2) g/dL Albumin (3.5-5.0) g/dL Influenza Type A RNA Not Detected (Not Detectd) Influenza Type B (PCR) Not Detected (Not Detectd) Disposition Clinical Impression: Bronchitis, Asthma with exacerbation Disposition: HOME SELF-CARE Condition: Good Instructions: Acute Bronchitis (ED), Asthma (ED) Prescriptions: Albuterol Inhaler [Ventolin Hfa Inhaler] 1 - 2 puff INHALATION Q4HR PRN #1 inhaler PRN Reason: Shortness Of Breath Azithromycin [Zithromax Z-pack] 0 mg PO DIRECTED #6 tab predniSONE 50 mg PO DAILY #5 tab Is patient prescribed a controlled substance at d/c from ED?: No Referrals: Stiven Middleton DO [Primary Care Provider] - 1-2 days Time of Disposition: 05:26
[2018-02-11 04:14] LABS: HCT 43.4 % (39.0-53.0); HGB 13.9 gm/dL (13.0-17.5); MCH 32.9 pg (25.0-35.0); MCHC 32.1 g/dL (31.0-37.0); MCV 102.7 fL (80.0-100.0); Macrocytosis Slight; Platelet Count 192 k/uL (150-450); RBC 4.22 m/uL (4.30-5.90); RDW 13.6 % (11.5-15.5); WBC 10.8 k/uL (3.8-10.6)
[2018-02-11 04:23] LABS: INR 2.6 (<1.2); Partial Thromboplastin Time 33.3 sec (22.0-30.0); Prothrombin Time 25.2 sec (9.0-12.0)
[2018-02-11 04:24] LABS: Albumin 3.7 g/dL (3.5-5.0); Calcium 8.6 mg/dL (8.4-10.2); Potassium 4.6 mmol/L (3.5-5.1); Total Bilirubin 0.4 mg/dL (0.2-1.3); Total Protein 6.7 g/dL (6.3-8.2)
--- NOTE | 2018-02-11 04:24 | XR ---
EXAM: XR Chest, 2 Views CLINICAL HISTORY: ITS.REASON XR Reason: difficulty breathing TECHNIQUE: Frontal and lateral views of the chest. COMPARISON: No relevant prior studies available. FINDINGS: Lungs: Unremarkable. No consolidation. Pleural space: Unremarkable. No pneumothorax. Heart: Unremarkable. No cardiomegaly. Mediastinum: Unremarkable. Bones/joints: Unremarkable. IMPRESSION: Normal chest x-rays.
[2018-02-11 04:35] LABS: Creatine Kinase 69 U/L (55-170)
[2018-02-11 04:48] LABS: Troponin I <0.012 ng/mL (0.000-0.034)
[2018-02-11 04:57] LABS: Eosinophils # (M) 0.54 k/uL (0-0.7); Lymphocytes # (M) 6.16 k/uL (1.0-4.8); Monocytes # (M) 0.76 k/uL (0-1.0); Neutrophils # (M) 3.46 k/uL (1.3-7.7); Neutrophils % (M) 32 %; Nucleated Red Blood Cells 0 /100 WBC (0-0); Total Cells Counted 200
[2018-02-11 05:29] VITALS: BP 143/82; PULSE 70; RESP 11
== END 2018-02-11 05:29 | disposition home or self-care (01) ==
LOC: EC 03:44
DX: J45.901 Unspecified asthma with (acute) exacerbation (principal); I48.91 Unspecified atrial fibrillation; I25.119 Atherosclerotic heart disease of native coronary artery with unspecified angina pectoris; E78.5 Hyperlipidemia, unspecified; I10 Essential (primary) hypertension; I25.2 Old myocardial infarction; M19.90 Unspecified osteoarthritis, unspecified site; Z85.9 Personal history of malignant neoplasm, unspecified; Z87.891 Personal history of nicotine dependence; Z79.01 Long term (current) use of anticoagulants; Z79.899 Other long term (current) drug therapy; Z95.1 Presence of aortocoronary bypass graft; Z95.5 Presence of coronary angioplasty implant and graft
CPT/HCPCS: 36415; 94640; 93005; 83880; 80053; 82550; 82553; 83605; 83735; 84484; 85025; 85610; 85730; 87040; 87502; 71046; 99285; 96374; J2930